=== PATIENT | male | born 1995 | race Native Hawaiian/Other Pacific Islander ===

== ENCOUNTER 2019-01-13 08:58 | Emergency (ER) | payer OTHER ==
[~2019-01-13] VITALS: Ht 172.7 cm; Wt 53.5 kg
[2019-01-13 09:14] VITALS: TEMP 97.9
[2019-01-13 11:00] VITALS: BP 111/73
== END 2019-01-13 11:00 | disposition home or self-care (01) ==
LOC: ED 08:58
DX: S00.93XA Contusion of unspecified part of head, initial encounter (principal); S16.1XXA Strain of muscle, fascia and tendon at neck level, initial encounter; S69.91XA Unspecified injury of right wrist, hand and finger(s), initial encounter; V49.3XXA Car occupant (driver) (passenger) injured in unspecified nontraffic accident, initial encounter
CPT/HCPCS: 99283